=== PATIENT | female | born 1990 | race Asian ===

== ENCOUNTER 2017-06-17 08:15 | Emergency (ER) | payer SELFPAY ==
[~2017-06-17] VITALS: Ht 180.3 cm; Wt 131.8 kg
[2017-06-17 09:26] LABS: HEMATOCRIT 36.1 % (34.6-47.8); HEMOGLOBIN 12.1 g/dL (11.7-16.4); WHITE BLOOD COUNT 8.3 x10^3/uL (3.4-10)
[2017-06-17 09:39] LABS: ASPARTATE AMINO TRANSFERASE 38 U/L (15-37); BLOOD UREA NITROGEN 8 mg/dL (7-18)
[2017-06-17 10:44] LABS: HCG UR OBC PASS
[2017-06-17 11:33] VITALS: BP 135/83
== END 2017-06-17 11:37 | disposition home or self-care (01) ==
LOC: ED 09:15
DX: N30.90 Cystitis, unspecified without hematuria (principal); N39.0 Urinary tract infection, site not specified
CPT/HCPCS: 36415; 74020; 80053; 81001; 81025; 83605; 83690; 85025; 87086; 99285